=== PATIENT | male | born 1960 | race Caucasian/White ===

== ENCOUNTER 2025-08-15 07:55 | Day surgery (SDC) | payer OTHER ==
[~2025-08-15] VITALS: Ht 177.8 cm; Wt 110.5 kg
[2025-08-15] VITALS (10 sets, daily range): BP systolic 130–154; BP diastolic 74–89; PULSE 50–58; RESP 14–21; O2SAT 93–96
[2025-08-15] MEDS ORDERED: sodium bicarbonate 1meq/ml syr 150 ML in dextrose 5%-water 1,000 ML IV ONE (08:15)
--- NOTE | 2025-08-15 08:40 | ELECTROCARDIOGRAPH REPORT ---
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 Delmar Hadyen Measurements Intervals [place] Rate: 49 P: 19 MT: 169 QRS: 16 QRSD: 103 T: 36 QT: 413 QTc: 373 Interpretive Statements Sinus bradycardia Atrial premature complex Abnormal R-wave progression, early transition Electronically Signed On 08-16-2025 8:45:[address] Delmar Hayden Please click the below link to view image of tracing.
[2025-08-15] MEDS ORDERED: LOSA25TA41 PO (08:48)
[2025-08-15] MEDS ORDERED: METF-1203 PO (08:48)
[2025-08-15] MEDS ORDERED: RED600CA2 PO (08:48)
[2025-08-15] MEDS ORDERED: MONT-40 PO (08:48)
[2025-08-15] MEDS ORDERED: TIRZ2.5P INJ (08:48)
[2025-08-15] MEDS ORDERED: VITAMIN D POPLITEAL (08:48)
[2025-08-15] MEDS ORDERED: MELA10TA2 PO (08:48)
[2025-08-15] MEDS ORDERED: ALBU10.7 INH (08:48)
[2025-08-15] MEDS ORDERED: IPRA3AMP31 INH (08:48)
[2025-08-15] MEDS ORDERED: BUDE10.7 INH (08:48)
[2025-08-15] MEDS ORDERED: [UNRECOGNIZED DRUG - OTHER] POPLITEAL (08:48)
[2025-08-15] MEDS ORDERED: LEVO125T8 PO (08:48)
[2025-08-15] MEDS ORDERED: ALPR0.5T8 PO (08:48)
[2025-08-15] MEDS ORDERED: ASPI81TA52 PO (08:48)
[2025-08-15] MEDS ORDERED: gaba PO (08:48)
[2025-08-15] MEDS ORDERED: CARV6.2553 PO (08:48)
[2025-08-15] MEDS ORDERED: CETI10TA19 PO (08:48)
[2025-08-15] MEDS ORDERED: MULT-1085 PO (08:48)
[2025-08-15] MEDS ORDERED: TRAZ-256 PO (08:48)
[2025-08-15] MEDS ORDERED: ROSU40TA89 PO (08:48)
[2025-08-15] MEDS ORDERED: ALBU18HF2 INH (08:50)
[2025-08-15 09:39] LABS: MEAN PLATELET VOLUME 9.1 FL (7.4-10.4); RED CELL DISTRIBUTION WIDTH 14.2 % (11.5-14.5)
[2025-08-15 09:49] LABS: INR 1.0 INR
[2025-08-15 09:51] LABS: CREATININE 0.79 MG/DL (0.60-1.10); TOTAL CARBON DIOXIDE 25.8 MMOL/L (24-32); eCRCL 99 ML/MIN; eGFR > 90 ML/MIN
[2025-08-15] MEDS ORDERED: verapamil 2.5 mg/ml inj IV ONE (10:17)
[2025-08-15] MEDS ORDERED: iohexol 350 MG/ML 50ML vial IV ONE (10:17)
[2025-08-15] MEDS ORDERED: LIDOcaine 1% (10mg/ml) 2ml vial ONE (10:17)
[2025-08-15] MEDS ORDERED: fentaNYL/PF 50MCG/1 ML 2ML syringe ONE (10:17)
[2025-08-15] MEDS ORDERED: midazolam 1 mg/ML 2ml injection ONE ×3 (10:17→12:04)
[2025-08-15] MEDS ORDERED: heparin 1,000unit/ml 10ml vial 10 ML ONE (10:18)
[2025-08-15] MEDS ORDERED: nitroGLYCERIN 500mcg/5mL D5W 5 ML IV ONE (10:18)
--- NOTE | 2025-08-15 14:22 | CARDIOLOGY REPORT ---
DATE OF SERVICE: 08/15/2025 DICTATING PHYSICIAN: DAVID SOLOMON DO CARDIAC CATHETERIZATION REPORT VICE PRESIDENT MEDICAL AFFAIRS STUDY NUMBER: [id number] [facility]. REFERRING PHYSICIAN: Alexia Silveira MD. CLINICAL HISTORY: This 64-year-old man has been experiencing random episodes of chest discomfort somewhat suggestive of angina. He has had a pharmacologic stress test demonstrating a posterobasal perfusion defect. He has also had a computerized calcium score of over 1500. There is a positive family history for coronary disease. PROCEDURES PERFORMED: * Left heart catheterization. * Left ventriculography. * Selective coronary arteriography. * 30 minutes conscious sedation supervision. DESCRIPTION OF PROCEDURE: The patient was sedated with fentanyl and Versed. He was then prepared and draped in the usual manner. The right radial artery was cannulated with a 6-Marshallese sheath in a standard manner, a standard cocktail of nitroglycerin, and verapamil was given and 5000 units of heparin were given in a peripheral IV. Left heart catheterization and left ventriculography were performed using a 6-Marshallese pigtail catheter. Coronary arteriography was performed using a 6-Marshallese Kimny catheter for the left coronary artery and a 6-Marshallese right Alex catheter for the right coronary artery. The sheath was removed and Vas band was applied. HEMODYNAMIC DATA: The left ventricular end diastolic pressure was 2 mm. There was no gradient across the aortic valve. LEFT VENTRICULOGRAM: The left ventriculogram was technically satisfactory. The ejection fraction appeared to be at least 60%. There appeared to be some calcium in the right coronary, but calcium was not readily visible in the left coronary. CORONARY ARTERIOGRAPHY: The coronary arteriograms were technically satisfactory. The patient had a right dominant system. LEFT MAIN CORONARY ARTERY: The left main was a large unobstructed vessel bifurcating into left anterior descending and circumflex coronary arteries. LEFT ANTERIOR DESCENDING CORONARY ARTERY: The LAD was a medium-sized vessel that did not have a completely transapical distribution. There was a very small caliber proximal first diagonal and a large bifurcated second diagonal taking its origin proximally as well. There were no other diagonals and there were no obstructive lesions in the left anterior descending coronary artery. CIRCUMFLEX CORONARY ARTERY: The circumflex was a large main stem vessel. There was a large trifurcated first obtuse marginal, a small caliber second obtuse marginal, a third obtuse marginal was also small and there was a small posterolateral branch. There were no obstructive lesions in the circumflex coronary artery. RIGHT CORONARY ARTERY: The right coronary was a large vessel. There was a medium to large posterior descending branch and a small bifurcated posterolateral branch. Proximally, there was about a 40% area of narrowing in the right coronary. But there were no outright obstructive lesions present. CONCLUSIONS: 1. No evidence for significant obstructive coronary artery disease. The patient did have a 40% area of narrowing in his proximal right coronary but otherwise no other lesions of note. 2. Left ventricular function appeared to be normal. The ejection fraction was about 70%. RECOMMENDATIONS: Ongoing medical therapy. DAVID SOLOMON DO TID: [id number] RECEIPT: [id number] JAMES/MELISSA
== END 2025-08-15 16:20 | disposition home or self-care (01) ==
LOC: SSTAY O 07:55
PROVIDERS: ATTEND Internal Medicine Cardiovascular Disease
DX: R94.39 Abnormal result of other cardiovascular function study (principal); I25.10 Atherosclerotic heart disease of native coronary artery without angina pectoris; I49.1 Atrial premature depolarization; I10 Essential (primary) hypertension; E11.9 Type 2 diabetes mellitus without complications; E78.5 Hyperlipidemia, unspecified; E03.9 Hypothyroidism, unspecified; J44.9 Chronic obstructive pulmonary disease, unspecified; Z87.891 Personal history of nicotine dependence; Z79.1 Long term (current) use of non-steroidal anti-inflammatories (NSAID); Z79.82 Long term (current) use of aspirin; Z79.84 Long term (current) use of oral hypoglycemic drugs; Z79.899 Other long term (current) drug therapy; Z90.49 Acquired absence of other specified parts of digestive tract; Z90.89 Acquired absence of other organs; Z98.890 Other specified postprocedural states; Z88.1 Allergy status to other antibiotic agents; Z88.2 Allergy status to sulfonamides; Z88.8 Allergy status to other drugs, medicaments and biological substances; Z82.49 Family history of ischemic heart disease and other diseases of the circulatory system
CPT/HCPCS: 36415; 80048; 83735; 85025; 85610; 93005; 93458; 99152; J1644; J2003; J2250; J3010; J3490; J7030; Q9967; 99153; A6258; A6402; A6449; C1894